=== PATIENT | female | born 1965 | race Caucasian/White ===

== ENCOUNTER 2019-03-27 09:30 | Outpatient (CLI) | payer MEDICARE, SELFPAY ==
--- NOTE | 2019-03-27 | CT_ITS ---
WS: [id number] CT LUNG CANCER SCREENING DLP: 60.16 mGy.cm DIvol: 1.51 mGy,1.28 mGy CLINICAL INFORMATION SCREENING VISIT: Baseline COMPARISON: None available. Technique: Low-dose CT scanning of the lungs have been performed from the 1 cm above the lung apices to 1 cm below the costophrenic angles. Images are viewed in 1.25 mm lung windows. MIP imaging, soft t issue and bone windows are reviewed. FINDINGS Diagnostic quality: Quality of this examination is satisfactory although limited by significant soft tissue artifact. Comments: None. Lung Nodules: No pulmonary nodules are identified. No masses. Subsegmental linear atelectasis and min imal groundglass attenuation at the RIGHT lung base. Lungs: Hyperexpanded lungs from emphysema. Subsegmental RIGHT lower lobe atelectasis. Heart: Normal size heart. Increased pericardial fat surrounding the heart. No significant calcificati on within the aorta or coronary arteries. Other findings: No mediastinal adenopathy. Extremely limited evaluation of the upper abdominal struct ures due to quality of the imaging parameters. Mild increase in thoracic kyphosis with multilevel spo ndylitic changes. No fracture or bone destruction. CT/CT lung screening [id number] IMPRESSION: LUNG-RADS: 1-Negative FOLLOW UP: 12 Month: Continue annual screening with LDCT 1. Increased pericardial fat. 2. Subsegmental atelectasis RIGHT lung base.
--- NOTE | 2019-03-27 09:45 | CT_ITS ---
WS: [id number] CT LUNG CANCER SCREENING DLP: 60.16 mGy.cm DIvol: 1.51 mGy,1.28 mGy CLINICAL INFORMATION SCREENING VISIT: Baseline COMPARISON: None available. Technique: Low-dose CT scanning of the lungs have been performed from the 1 cm above the lung apices to 1 cm below the costophrenic angles. Images are viewed in 1.25 mm lung windows. MIP imaging, soft t issue and bone windows are reviewed. FINDINGS Diagnostic quality: Quality of this examination is satisfactory although limited by significant soft tissue artifact. Comments: None. Lung Nodules: No pulmonary nodules are identified. No masses. Subsegmental linear atelectasis and min imal groundglass attenuation at the RIGHT lung base. Lungs: Hyperexpanded lungs from emphysema. Subsegmental RIGHT lower lobe atelectasis. Heart: Normal size heart. Increased pericardial fat surrounding the heart. No significant calcificati on within the aorta or coronary arteries. Other findings: No mediastinal adenopathy. Extremely limited evaluation of the upper abdominal struct ures due to quality of the imaging parameters. Mild increase in thoracic kyphosis with multilevel spo ndylitic changes. No fracture or bone destruction. LUNG-RADS: 1-Negative
== END 2019-03-27 09:31 | disposition home or self-care (01) ==
LOC: CT 09:32
PROVIDERS: Family Provider Nurse Practitioner Family; PCP Nurse Practitioner Family; Visit Provider Internal Medicine Critical Care Medicine
DX: Z12.2 Encounter for screening for malignant neoplasm of respiratory organs (principal); J98.11 Atelectasis
CPT/HCPCS: G0297

== ENCOUNTER 2019-05-02 10:00 | Outpatient (CLI) | payer MEDICARE, SELFPAY ==
--- NOTE | 2019-05-02 16:17 | PFTS_ITS ---
Date of Study:05/02/19 Date of Dictation: MECHANICS: Forced vital capacity (FVC) is reduced. Forced expiratory volume in one second (FEV1) is reduced. FEV1/FVC is normal. FLOW VOLUME LOOP: Narrow with scooping suggestive of a combined restrictive and obstructive defect. LUNG VOLUMES: Total lung capacity (TLC) is normal. Residual volume (RV) is normal. DIFFUSING CAPACITY FOR CARBON MONOXIDE: Normal. INTERPRETATION: The pulmonary function tests are consistent with mild restriction. There is no significant postbronchodilator response. The flow volume loop is consistent with small airways disease. The total lung capacity and residual volume are normal. Gas exchange (DLCO) is normal. MTDD
== END 2019-05-02 10:01 | disposition home or self-care (01) ==
LOC: RT 10:05
PROVIDERS: Family Provider Nurse Practitioner Family; PCP Nurse Practitioner Family; Visit Provider Internal Medicine Critical Care Medicine
DX: J98.4 Other disorders of lung (principal)
CPT/HCPCS: 94060; 94726; 94729; J7611

== ENCOUNTER → 2019-08-10 08:08 | Outpatient (BNVA) | payer MEDICARE, SELFPAY | PROVIDERS: Family Provider Nurse Practitioner Family; PCP Nurse Practitioner Family; Visit Provider Nurse Practitioner Family | DX: M79.641 Pain in right hand (principal); S62.656A Nondisplaced fracture of middle phalanx of right little finger, initial encounter for closed fracture; X58.XXXA Exposure to other specified factors, initial encounter | CPT/HCPCS: 73130 ==

== ENCOUNTER → 2019-11-12 07:57 | Outpatient (BNVA) | payer MEDICARE, SELFPAY | PROVIDERS: Family Provider Nurse Practitioner Family; PCP Nurse Practitioner Family; Visit Provider Nurse Practitioner Family | DX: E78.2 Mixed hyperlipidemia (principal); Z79.899 Other long term (current) drug therapy; K21.9 Gastro-esophageal reflux disease without esophagitis; R53.83 Other fatigue | CPT/HCPCS: 80053; 80061; 81003; 82306; 83036; 84443; 85025 ==

== ENCOUNTER → 2020-04-24 13:51 | Outpatient (BNVA) | payer MEDICARE, SELFPAY | PROVIDERS: Family Provider Nurse Practitioner Family; PCP Nurse Practitioner Family; Visit Provider Nurse Practitioner Family | DX: M72.2 Plantar fascial fibromatosis (principal) | CPT/HCPCS: 73630 ==

== ENCOUNTER → 2020-05-05 08:18 | Outpatient (BNVA) | payer MEDICARE, SELFPAY | PROVIDERS: Family Provider Nurse Practitioner Family; PCP Nurse Practitioner Family; Visit Provider Nurse Practitioner Family | DX: E78.2 Mixed hyperlipidemia (principal); R73.09 Other abnormal glucose; R53.83 Other fatigue; E55.9 Vitamin D deficiency, unspecified; K21.9 Gastro-esophageal reflux disease without esophagitis | CPT/HCPCS: 80053; 80061; 81003; 82306; 83036; 84443; 85025 ==

== ENCOUNTER → 2020-07-02 14:52 | Outpatient (BNVA) | payer MEDICARE, SELFPAY | PROVIDERS: Family Provider Nurse Practitioner Family; PCP Nurse Practitioner Family; Referring Provider Nurse Practitioner Family; Visit Provider Podiatrist Foot & Ankle Surgery | DX: M72.2 Plantar fascial fibromatosis (principal); M79.671 Pain in right foot; Z46.89 Encounter for fitting and adjustment of other specified devices | CPT/HCPCS: 73630; 97760; L4397 ==

== ENCOUNTER 2020-07-02 15:50 | Outpatient (CLI) | payer MEDICARE, SELFPAY | END 2020-07-02 15:51 | disposition home or self-care (01) | LOC: SPT 15:51 | PROVIDERS: Family Provider Nurse Practitioner Family; PCP Nurse Practitioner Family; Visit Provider Podiatrist Foot & Ankle Surgery | DX: Z46.89 Encounter for fitting and adjustment of other specified devices (principal); M72.2 Plantar fascial fibromatosis | CPT/HCPCS: 97760; L4397 ==

== ENCOUNTER → 2020-10-14 12:07 | Outpatient (BNVA) | payer MEDICARE, SELFPAY | PROVIDERS: Family Provider Nurse Practitioner Family; PCP Nurse Practitioner Family; Visit Provider Nurse Practitioner Family | DX: R53.83 Other fatigue (principal); R73.09 Other abnormal glucose; E55.9 Vitamin D deficiency, unspecified; E78.2 Mixed hyperlipidemia; Z00.00 Encounter for general adult medical examination without abnormal findings | CPT/HCPCS: 80053; 80061; 81003; 82306; 83036; 84443; 85025; 87077; 87086; 87184 ==

== ENCOUNTER → 2020-10-22 11:59 | Outpatient (BNVA) | payer MEDICARE, SELFPAY | PROVIDERS: Family Provider Nurse Practitioner Family; PCP Nurse Practitioner Family; Visit Provider Nurse Practitioner Family | DX: A49.9 Bacterial infection, unspecified (principal); N39.0 Urinary tract infection, site not specified; N32.81 Overactive bladder; Z12.39 Encounter for other screening for malignant neoplasm of breast | CPT/HCPCS: 81003; 87077; 87086; 87184 ==

== ENCOUNTER → 2020-11-05 10:31 | Outpatient (BNVA) | payer MEDICARE, SELFPAY | PROVIDERS: Family Provider Nurse Practitioner Family; PCP Nurse Practitioner Family; Visit Provider Nurse Practitioner Family | DX: N39.0 Urinary tract infection, site not specified (principal) | CPT/HCPCS: 81003 ==

== ENCOUNTER 2020-12-19 06:00 | Outpatient (RCR) | payer MEDICARE, SELFPAY | END 2020-12-28 06:00 | disposition home or self-care (01) | LOC: WPT 06:00 | PROVIDERS: PCP Nurse Practitioner Family; Referring Provider Physician Assistant; Visit Provider Physician Assistant | DX: M46.1 Sacroiliitis, not elsewhere classified (principal) | CPT/HCPCS: 97110; 97162 ==

== ENCOUNTER 2020-12-26 14:26 | Outpatient (CLI) | payer MEDICARE, SELFPAY ==
--- NOTE | 2020-12-26 14:31 | XR_ITS ---
WS: [id number] Exam: XR DEXA axial skeleton* [id number] Date/Time of Exam: 12/26/2020 2:31 PM Reason For Exam: ASYMPTOMATIC MENOPAUSAL STATE DEXA BONE DENSITOMETRY [employer] The left forearm bone mineral density measures 0.880 g/sq cm. This corresponds to a T score of 0.0 an d Z score of 0.7. Left femoral neck bone mineral density measures 1.102 g/cm2. This corresponds to T score of 0.7 and Z score of 0.7. Right femoral neck bone mineral density measures 1.074 g/cm2. This corresponds to a T score of 0.5 an d Z score of 0.5. Mean femoral neck bone mineral density measures 1.088 g/cm2. This corresponds to a T score of 0.6 and Z score of 0.6. XR/XR DEXA axial skeleton* [id number] IMPRESSION: Bone mineral density lies in the normal range. No osteopenia is observed at th is time. Refer to detailed summary.
== END 2020-12-26 14:27 | disposition home or self-care (01) ==
PROVIDERS: PCP Nurse Practitioner Family; Visit Provider Physician Assistant
DX: Z78.0 Asymptomatic menopausal state (principal)
CPT/HCPCS: 77080

== ENCOUNTER 2021-02-05 12:44 | Outpatient (CLI) | payer MEDICARE, SELFPAY ==
--- NOTE | 2021-02-05 13:00 | MM_ITS ---
WS: [id number] BILATERAL SCREENING DIGITAL MAMMOGRAM WITH CAD HISTORY: Z12.39 - Encounter for other screening for malignant neoplasm. COMPARISON: 09/19/2018 and 08/26/2017 Bilateral CC and MLO views submitted. Computer aided detection analyzed. Breast composition: There are scattered areas of fibroglandular density. No suspicious masses, microc alcifications or architectural distortion. Benign scattered calcifications. MM/[place] [id number] IMPRESSION: BI-RADS: 2-Benign FOLLOW UP: 1 Year Follow-up
== END 2021-02-05 12:45 | disposition home or self-care (01) ==
LOC: RADSHAW 12:46
PROVIDERS: PCP Nurse Practitioner Family; Visit Provider Nurse Practitioner Family
DX: Z12.31 Encounter for screening mammogram for malignant neoplasm of breast (principal)
CPT/HCPCS: 77067

== ENCOUNTER → 2021-07-06 10:05 | Outpatient (BNVA) | payer MEDICARE, SELFPAY | PROVIDERS: PCP Nurse Practitioner; Visit Provider Nurse Practitioner | DX: R43.9 Unspecified disturbances of smell and taste (principal) | CPT/HCPCS: 82306; 82607 ==

== ENCOUNTER → 2021-08-17 08:57 | Outpatient (BNVA) | payer MEDICARE, SELFPAY | PROVIDERS: PCP Nurse Practitioner; Visit Provider Podiatrist Foot & Ankle Surgery | DX: M72.2 Plantar fascial fibromatosis (principal); M79.671 Pain in right foot | CPT/HCPCS: 20550; J1100; J3301; J3490 ==

== ENCOUNTER → 2021-09-17 09:22 | Outpatient (BNVA) | payer MEDICARE, SELFPAY | PROVIDERS: PCP Nurse Practitioner; Visit Provider Nurse Practitioner | DX: Z20.822 Contact with and (suspected) exposure to COVID-19 (principal); B34.9 Viral infection, unspecified | CPT/HCPCS: 87635 ==

== ENCOUNTER 2021-12-10 11:13 | Outpatient (CLI) | payer MEDICARE, SELFPAY ==
--- NOTE | 2021-12-10 12:15 | MR_ITS ---
WS: [id number] MRI LUMBAR SPINE WITH CONTRAST TECHNIQUE: Sagittal T1, T2 and STIR imaging. Axial T1 and T2 imaging. Post gadolinium imaging was obt ained. CLINICAL INFORMATION: RADICULOPATHY COMPARISON: None. FINDINGS: Mild lumbar curve. No acute compression. No high-grade central canal stenosis. Pedicle screw fixation L3-L5 with interbody fusion L3-L4 and L4-L5. Decompressive laminectomy defects. Incidental Tarlov cy st in the sacrum. Tiny shallow central protrusion T11-T12. L1-L2: No significant disc bulging. Spinal canal and foramen are patent. Moderate facet arthropathy. L2-L3: No significant disc bulging. Moderate facet arthropathy. Spinal canal and foramen are patent. L3-L4: Pedicle screw fixation with interbody fusion. Spinal canal is patent. Foramen are patent. Deco mpressive laminectomies. L4-L5: Pedicle screw fixation. Interbody bony fusion. Spinal canal and foramen are patent. Decompress [place] laminectomies. L5-S1: RIGHT pericentral protrusion impinges the traversing RIGHT S1 nerve root in the subarticular r ecess. Recommend correlation for RIGHT S1 nerve root symptoms. Mild to moderate RIGHT and mild LEFT b darren foraminal narrowing. Advanced facet arthropathy with small facet effusions. Visualized pelvic bony structures: Normal. Paravertebral soft tissues: Normal. Small RIGHT renal cyst. MR/MR lumbar spine wo/w con [id number] IMPRESSION: 1. Prior postoperative changes pedicle screw fixation L3-L5 with interbody fus ion grafts. Decompressive laminectomy defects. 2. No high-grade central canal stenosis. 3. RIGHT pericentral protrusion L5-S1 impinges the traversing RIGHT S1 nerve r oot in the subarticular recess. Recommend correlation for RIGHT S1 nerve root s ymptoms. 4. Mild to moderate RIGHT L5-S1 foraminal narrowing. 5. Advanced facet arthropathy L5-S1 with small facet effusions.
[2021-12-10] MEDS: gadobenate dimeglumine 20 mL vial IV (12:38)
== END 2021-12-10 11:14 | disposition home or self-care (01) ==
PROVIDERS: PCP Nurse Practitioner; Visit Provider Physician Assistant
DX: M51.16 Intervertebral disc disorders with radiculopathy, lumbar region (principal); Z98.1 Arthrodesis status; G89.18 Other acute postprocedural pain; M51.27 Other intervertebral disc displacement, lumbosacral region; M48.07 Spinal stenosis, lumbosacral region
CPT/HCPCS: 72158

== ENCOUNTER → 2022-01-19 10:41 | Outpatient (BNVA) | payer MEDICARE, SELFPAY | PROVIDERS: PCP Nurse Practitioner; Visit Provider Nurse Practitioner | DX: A49.9 Bacterial infection, unspecified (principal); N39.0 Urinary tract infection, site not specified | CPT/HCPCS: 81000 ==

== ENCOUNTER → 2022-06-30 08:41 | Outpatient (BNVA) | payer MEDICARE, SELFPAY | PROVIDERS: PCP Nurse Practitioner; Visit Provider Nurse Practitioner | DX: Z00.00 Encounter for general adult medical examination without abnormal findings (principal); E78.2 Mixed hyperlipidemia; R73.09 Other abnormal glucose; E11.9 Type 2 diabetes mellitus without complications; R53.83 Other fatigue | CPT/HCPCS: 80053; 83036; 84443; 85025 ==

== ENCOUNTER 2022-10-05 06:00 | Outpatient (RCR) | payer MEDICARE, SELFPAY | END 2022-10-28 23:59 | disposition home or self-care (01) | LOC: WPT 06:00 | PROVIDERS: Visit Provider Clinical Nurse Specialist Adult Health | DX: M54.2 Cervicalgia (principal) | CPT/HCPCS: 97110; 97112; 97161; 97530 ==

== ENCOUNTER 2022-10-29 06:00 | Outpatient (RCR) | payer MEDICARE, SELFPAY | END 2022-11-27 23:59 | disposition home or self-care (01) | LOC: WPT 06:00 | PROVIDERS: Visit Provider Clinical Nurse Specialist Adult Health | DX: M54.2 Cervicalgia (principal) | CPT/HCPCS: 97110; 97112; 97530 ==

== ENCOUNTER 2022-11-28 06:00 | Outpatient (RCR) | payer MEDICARE, SELFPAY | END 2022-12-28 23:59 | disposition home or self-care (01) | LOC: WPT 06:00 | PROVIDERS: Visit Provider Clinical Nurse Specialist Adult Health | DX: M54.2 Cervicalgia (principal) | CPT/HCPCS: 97110; 97112 ==

== ENCOUNTER → 2023-02-01 09:17 | Outpatient (BNVA) | payer MEDICARE, SELFPAY | PROVIDERS: Visit Provider Nurse Practitioner Family | DX: E11.9 Type 2 diabetes mellitus without complications (principal); E78.2 Mixed hyperlipidemia; E55.9 Vitamin D deficiency, unspecified; R53.83 Other fatigue; R73.09 Other abnormal glucose | CPT/HCPCS: 80053; 80061; 81003; 82306; 83036; 84443; 85025; 87086; 87184 ==

== ENCOUNTER 2023-05-05 06:00 | Outpatient (RCR) | payer MEDICARE, SELFPAY | END 2023-05-29 23:59 | disposition home or self-care (01) | LOC: WPT 06:00 | PROVIDERS: PCP Nurse Practitioner Family; Visit Provider Family Medicine | DX: M17.12 Unilateral primary osteoarthritis, left knee (principal) | CPT/HCPCS: 97110; 97112; 97161; 97530 ==

== ENCOUNTER 2023-05-30 06:00 | Outpatient (RCR) | payer MEDICARE, SELFPAY | END 2023-06-28 23:59 | disposition home or self-care (01) | LOC: WPT 06:00 | PROVIDERS: PCP Nurse Practitioner Family; Visit Provider Family Medicine | DX: M17.12 Unilateral primary osteoarthritis, left knee (principal) | CPT/HCPCS: 97110; 97112; 97530 ==

== ENCOUNTER 2023-06-29 06:00 | Outpatient (RCR) | payer MEDICARE, SELFPAY | END 2023-07-29 23:59 | disposition home or self-care (01) | LOC: WPT 06:00 | PROVIDERS: PCP Nurse Practitioner Family; Visit Provider Family Medicine | DX: M17.12 Unilateral primary osteoarthritis, left knee (principal) | CPT/HCPCS: 97110; 97112; 97530 ==

== ENCOUNTER → 2023-11-28 09:54 | Outpatient (BNVA) | payer MEDICARE, SELFPAY | PROVIDERS: PCP Nurse Practitioner Family; Visit Provider Nurse Practitioner Family | DX: E11.9 Type 2 diabetes mellitus without complications (principal); R53.83 Other fatigue; E78.2 Mixed hyperlipidemia; E55.9 Vitamin D deficiency, unspecified | CPT/HCPCS: 80053; 80061; 81003; 82306; 83036; 83721; 84443; 85025; 87086 ==

== ENCOUNTER → 2023-12-01 09:00 | Outpatient (BNVA) | payer MEDICARE, SELFPAY | PROVIDERS: PCP Nurse Practitioner Family; Referring Provider Nurse Practitioner Family; Visit Provider Student in an Organized Health Care Education/Training Program | DX: Z12.11 Encounter for screening for malignant neoplasm of colon (principal) | CPT/HCPCS: 99024; 99204 ==

== ENCOUNTER → 2024-11-01 11:46 | Outpatient (BNVA) | payer MEDICARE, SELFPAY | PROVIDERS: PCP Nurse Practitioner Family; Visit Provider Nurse Practitioner Family | DX: E55.9 Vitamin D deficiency, unspecified (principal); E78.2 Mixed hyperlipidemia; E11.9 Type 2 diabetes mellitus without complications; R09.81 Nasal congestion; J02.9 Acute pharyngitis, unspecified; K21.9 Gastro-esophageal reflux disease without esophagitis | CPT/HCPCS: 80053; 80061; 81003; 82306; 83036; 84443; 85025; 87077; 87086; 87184 ==

== ENCOUNTER → 2024-11-08 11:40 | Outpatient (BNVA) | payer MEDICARE, SELFPAY | PROVIDERS: PCP Nurse Practitioner Family; Visit Provider Nurse Practitioner Family | DX: N02.9 Recurrent and persistent hematuria with unspecified morphologic changes (principal); R53.83 Other fatigue | CPT/HCPCS: 81003; 87086 ==

== ENCOUNTER → 2024-11-13 09:01 | Outpatient (BNVA) | payer MEDICARE, SELFPAY | PROVIDERS: PCP Nurse Practitioner Family; Visit Provider Nurse Practitioner Family | DX: N02.9 Recurrent and persistent hematuria with unspecified morphologic changes (principal) | CPT/HCPCS: 81003 ==

== ENCOUNTER → 2024-11-14 08:42 | Outpatient (BNVA) | payer MEDICARE, SELFPAY | PROVIDERS: PCP Nurse Practitioner Family; Visit Provider Nurse Practitioner Family | DX: N02.9 Recurrent and persistent hematuria with unspecified morphologic changes (principal) | CPT/HCPCS: 88112 ==

== ENCOUNTER → 2024-11-22 09:22 | Outpatient (BNVA) | payer MEDICARE, SELFPAY | PROVIDERS: PCP Nurse Practitioner Family; Visit Provider Student in an Organized Health Care Education/Training Program | DX: Z12.11 Encounter for screening for malignant neoplasm of colon (principal); K21.9 Gastro-esophageal reflux disease without esophagitis; R12 Heartburn | CPT/HCPCS: 99214 ==

== ENCOUNTER → 2024-12-18 09:45 | Outpatient (BNVA) | payer MEDICARE, SELFPAY | PROVIDERS: PCP Nurse Practitioner Family; Visit Provider Nurse Practitioner Family | DX: M19.011 Primary osteoarthritis, right shoulder (principal) | CPT/HCPCS: 73030 ==

== ENCOUNTER 2024-12-21 13:43 | Outpatient (CLI) | payer MEDICARE, SELFPAY ==
--- NOTE | 2024-12-21 14:00 | MM_ITS ---
WS: [id number] BILATERAL 3D TOMOSYNTHESIS DIGITAL SCREENING MAMMOGRAPHY WITH CAD CLINICAL INFORMATION: Z12.31 - Encounter for screening mammogram for malignant ... HISTORY: Screening mammogram. No current complaints. COMPARISON: 2020 TECHNIQUE: Bilateral CC and MLO views. FINDINGS: Scattered fibroglandular densities bilaterally. No suspicious focal mass, asymmetry, calcifications, or architectural distortion. No evidence of malignancy. Incidental punctate calcifications. A few clustered punctate calcifications LEFT breast MM/MM scr tomosynthesis [id number] IMPRESSION: DENSITY: There are scattered areas of fibroglandular density. BI-RADS: 2 - Benign. FOLLOW UP: 1 Year Follow-up Recommend return to annual screening mammography.
--- NOTE | 2024-12-21 14:30 | XR_ITS ---
WS: [id number] SCREENING DEXA SCAN [employer] CLINICAL INFORMATION: N95.9 - Unspecified menopausal and perimenopausal disorder COMPARISON: 2020 FINDINGS: Left femoral neck bone mineral density measures 1.091 g/cm2. This corresponds to a T score of 0.7 and Z score of 0.8. Right femoral neck bone mineral density measures 1.043 g/cm2. This corresponds to a T score 0.3of and Z score of 0.4. Mean femoral neck bone mineral density measures 1.067 g/cm2. This corresponds to a T score of 0.5 and Z score of 0.6. XR/XR DEXA axial skeleton* [id number] IMPRESSION: Normal bone mineralization femoral necks. Patient's FRAX calculated 10 year probability for major osteoporotic fracture i s 5.5% and osteoporotic hip fracture is 0.3%. Bone mineral density femoral necks decreased -1.9%
== END 2024-12-21 13:44 | disposition home or self-care (01) ==
LOC: RAD 13:46
PROVIDERS: PCP Nurse Practitioner Family; Visit Provider Nurse Practitioner Family
DX: Z12.31 Encounter for screening mammogram for malignant neoplasm of breast (principal); Z13.820 Encounter for screening for osteoporosis; N95.9 Unspecified menopausal and perimenopausal disorder; M85.80 Other specified disorders of bone density and structure, unspecified site; R92.323 Mammographic fibroglandular density, bilateral breasts; R92.1 Mammographic calcification found on diagnostic imaging of breast
CPT/HCPCS: 77063; 77067; 77080

== ENCOUNTER → 2024-12-26 13:33 | Outpatient (BNVA) | payer MEDICARE, SELFPAY | PROVIDERS: PCP Nurse Practitioner Family; Visit Provider Nurse Practitioner Family | DX: R69 Illness, unspecified (principal) | CPT/HCPCS: 87426 ==

== ENCOUNTER 2025-01-01 07:15 | Day surgery (SDC) | payer MEDICARE, SELFPAY ==
[2025-01-01 08:12] VITALS: BP 132/87; PULSE 98; RESP 18; TEMP 36.3; O2SAT 98
--- NOTE | 2025-01-01 08:21 | ANES.PREANE2 ---
Pre-Anesthetic Assessment Height/Weight: Height 1.63 m Weight 114.305 kg Temp Pulse Resp BP Pulse Ox O2 Del Method 97.4 F L 98 18 132/87 98 Room Air 01/01/25 08:12 01/01/25 08:12 01/01/25 08:12 01/01/25 08:12 01/01/25 08:12 01/01/25 08:12 Preop Diagnosis: diffuculty swallowing Operation Date: 01/01/25 09:00 Proposed Procedures p EGD EGD with Biopsy [id number] G0121 K21.9 Z12.11(Not Applicable) - Sam Cruz MD s Colonoscopy(Not Applicable) - Sam Cruz MD Was Beta Teresa taken within 24 hours: N/A Was Clonidine taken within 24 hours: N/A Last intake: Intake Last Liquid Date 12/31/24 Last Liquid Time 23:30 Last Solid Date 12/30/24 Last Solid Time 18:00 Last Intake: 08:23 Social No alcohol and No tobacco Exam alert and oriented x 3 Airway Submandibular: within normal limits Cervical ROM: within normal limits Mallampati: Class II Dentition: false History/ROS No significant history except as noted Pulmonary None reported CV/HEM None reported None reported Hepatic None reported GI None reported Metabolic Morbid [place] [facility] [place] None reported Neuropsych None reported Anesthetic Plan ASA status: 3 Anesthesia: Anesthesia Evaluation Risk of > 500 ml blood loss (7ml/kg in children): No Medications/Allergies Home Medications ?Medication ?Instructions ?Recorded ?Confirmed ?Last Taken ?Type nortriptyline 75 mg capsule 75 mg PO DAILY 03/20/19 12/26/24 12/31/24 History multivitamin (Daily Multi-Vitamin 1 tab PO DAILY 04/24/20 12/26/24 12/31/24 History tablet) hydromorphone (PF) 1 mg/mL 1 mg SUBCUT .hourly PRN Pain 07/03/21 12/26/24 12/31/24 History injection syringe (Dilaudid (PF)) ezetimibe 10 mg tablet (Zetia) 10 mg PO DAILY 11/01/24 12/26/24 12/31/24 History gabapentin 400 mg capsule 800 mg PO TID 11/01/24 12/26/24 12/31/24 History aripiprazole 2 mg tablet 2 mg PO DAILY 12/26/24 12/26/24 12/31/24 History cholecalciferol (vitamin D3) 1,250 2,000 unit PO DAILY 12/26/24 12/26/24 12/31/24 History mcg (50,000 unit) capsule citalopram 20 mg tablet 20 mg PO DAILY 12/26/24 12/26/24 12/31/24 History cyclobenzaprine 10 mg tablet 10 mg PO TID PRN Muscle Spasm 12/26/24 12/26/24 12/31/24 History diphenoxylate-atropine 2.5 1 tab PO BID PRN diarrhea #10 tabs 12/26/24 01/01/25 Unknown Rx mg-0.025 mg tablet (Lomotil) hydrochlorothiazide 12.5 mg tablet 12.5 mg PO DAILY 12/26/24 12/26/24 12/31/24 History omeprazole 20 mg capsule,delayed 20 mg PO DAILY 12/26/24 12/26/24 12/31/24 History release oxybutynin chloride 5 mg 5 mg PO DAILY 12/26/24 12/26/24 12/31/24 History tablet,extended release 24 hr rosuvastatin 10 mg tablet 10 mg PO DAILY 12/26/24 12/26/24 12/31/24 History tirzepatide 7.5 mg/0.5 mL 7.5 mg (0.5 mL) SUBCUT .WEEKLY #2 12/26/24 01/01/25 12/25/24 Rx subcutaneous pen injector mL (Mounjaro) Allergies Allergy/AdvReac Type Severity Reaction Status Date / Time Opioids - Morphine Analogues Allergy ADR-Itching Verified 12/26/24 12:52 Current Medications Generic Name Dose Route Start Last Admin Trade Name Freq PRN Reason Stop Dose Admin Sodium Chloride 1,000 mls @ 15 mls/hr 01/01/25 07:32 01/01/25 08:18 Sodium Chloride 0.9% IV 01/02/25 07:31 15 mls/hr .Q24H PRN Administration COLONOSCOPY FLUIDS PFSH Anesthesia Medical History (Updated 12/26/24 @ 13:26 by MARJORIE Negron) Osteopenia Carpal tunnel syndrome of left wrist Acute bacterial sinusitis Upper respiratory infection Arthritis of right shoulder Presence of implanted infusion pump Recurrent hematuria E. coli UTI Dysphagia, unspecified type Medicare annual wellness visit, subsequent Colon cancer screening Degenerative joint disease of knee, left Breast cancer screening by mammogram Type 2 diabetes mellitus without complication, without long-term current use of insulin Breast cancer screening UTI (urinary tract infection), bacterial Overactive bladder Acute lower respiratory infection Fatigue Elevated hemoglobin A1c Pharyngitis Mixed hyperlipidemia GERD (gastroesophageal reflux disease) Bronchitis Patient is a smoker Depression Insomnia Esophagitis with gastritis Adenomatous colon polyp Polyp of colon, unspecified part of colon, unspecified type Seborrheic keratoses Restrictive lung disease Surgical History (Updated 12/26/24 @ 13:26 by MARJORIE Negron) History of implanted electronic device bladder History of arthroscopy of both knees S/P spinal fusion Status post right knee replacement S/P cholecystectomy S/P abdominal hysterectomy H/O colonoscopy with polypectomy 09/15 patient had colonoscopy per Dr. Burrell with removal of adenomatous polyp. Patient to return for repeat colonoscopy in 5 years (August 2023) History of incisional hernia repair December [address] Burrell History of esophagogastroduodenoscopy (EGD) August 2018 - per Dr. Burrell Family History Brother Cancer, Onset Age: 60 Lung cancer Social History Smoking and tobacco/nicotine status: current every day tobacco/nicotine user cigarettes Packs smoked per day: 1 Years cigarettes smoked: 30 Quit status (tobacco/nicotine): considering quitting Second hand smoke exposure: Yes Alcohol intake: never Substance/Drug Use: never Lives independently: Yes Household members: spouse Current occupational status: disabled Do you think of yourself as: Straight/Heterosexual Current gender identity: Female
--- NOTE | 2025-01-01 08:46 | W.PM.OPSFHP ---
Same Day Surgery H&P Indication for Procedure/HPI DATE OF PROCEDURE: January 01, 2025 CHIEF COMPLAINT/INDICATIONFOR SURGICAL PROCEDURE: Dysphagia, screening colonoscopy PREOP DIAGNOSIS: Dysphagia, screening colonoscopy PLANNED PROCEDURE: Operation Date: 01/01/25 09:00 Proposed Procedures p EGD EGD with Biopsy [id number] G0121 K21.9 Z12.11(Not Applicable) - Sam Cruz MD s Colonoscopy(Not Applicable) - Sam Cruz MD Medications/Allergies* Home Medications ?Medication ?Instructions ?Recorded ?Confirmed ?Type nortriptyline 75 mg capsule 75 mg PO DAILY 03/20/19 12/26/24 History multivitamin (Daily Multi-Vitamin 1 tab PO DAILY 04/24/20 12/26/24 History tablet) hydromorphone (PF) 1 mg/mL 1 mg SUBCUT .hourly PRN Pain 07/03/21 12/26/24 History injection syringe (Dilaudid (PF)) ezetimibe 10 mg tablet (Zetia) 10 mg PO DAILY 11/01/24 12/26/24 History gabapentin 400 mg capsule 800 mg PO TID 11/01/24 12/26/24 History aripiprazole 2 mg tablet 2 mg PO DAILY 12/26/24 12/26/24 History cholecalciferol (vitamin D3) 1,250 2,000 unit PO DAILY 12/26/24 12/26/24 History mcg (50,000 unit) capsule citalopram 20 mg tablet 20 mg PO DAILY 12/26/24 12/26/24 History cyclobenzaprine 10 mg tablet 10 mg PO TID PRN Muscle Spasm 12/26/24 12/26/24 History hydrochlorothiazide 12.5 mg tablet 12.5 mg PO DAILY 12/26/24 12/26/24 History omeprazole 20 mg capsule,delayed 20 mg PO DAILY 12/26/24 12/26/24 History release oxybutynin chloride 5 mg 5 mg PO DAILY 12/26/24 12/26/24 History tablet,extended release 24 hr rosuvastatin 10 mg tablet 10 mg PO DAILY 12/26/24 12/26/24 History Allergies/Adverse Reactions Allergy/AdvReac Type Severity Reaction Status Date / Time Opioids - Morphine Analogues Allergy ADR-Itching Verified 12/26/24 12:52 Current Medications: Generic Name Dose Route Start Last Admin Trade Name Freq PRN Reason Stop Dose Admin Sodium Chloride 1,000 mls @ 15 mls/hr 01/01/25 07:32 01/01/25 08:18 Sodium Chloride 0.9% IV 01/02/25 07:31 15 mls/hr .Q24H PRN Administration COLONOSCOPY FLUIDS Pertinent History/Comorbid Conditions* Medical History (Updated 12/26/24 @ 13:26 by MARJORIE Negron) Osteopenia Carpal tunnel syndrome of left wrist Acute bacterial sinusitis Upper respiratory infection Arthritis of right shoulder Presence of implanted infusion pump Recurrent hematuria E. coli UTI Dysphagia, unspecified type Medicare annual wellness visit, subsequent Colon cancer screening Degenerative joint disease of knee, left Breast cancer screening by mammogram Type 2 diabetes mellitus without complication, without long-term current use of insulin Breast cancer screening UTI (urinary tract infection), bacterial Overactive bladder Acute lower respiratory infection Fatigue Elevated hemoglobin A1c Pharyngitis Mixed hyperlipidemia GERD (gastroesophageal reflux disease) Bronchitis Patient is a smoker Depression Insomnia Esophagitis with gastritis Adenomatous colon polyp Polyp of colon, unspecified part of colon, unspecified type Seborrheic keratoses Restrictive lung disease Surgical History (Updated 12/26/24 @ 13:26 by MARJORIE Negron) History of implanted electronic device bladder History of arthroscopy of both knees S/P spinal fusion Status post right knee replacement S/P cholecystectomy S/P abdominal hysterectomy H/O colonoscopy with polypectomy 09/15 patient had colonoscopy per Dr. Burrell with removal of adenomatous polyp. Patient to return for repeat colonoscopy in 5 years (August 2023) History of incisional hernia repair December [address] Burrell History of esophagogastroduodenoscopy (EGD) August 2018 - per Dr. Burrell Family History (Updated 03/13/20 @ 08:55 by MARJORIE Molina) Cancer Brother, Onset Age: 60 Lung cancer Social History Smoking and tobacco/nicotine status: current every day tobacco/nicotine user cigarettes Packs smoked per day: 1 Years cigarettes smoked: 30 Quit status (tobacco/nicotine): considering quitting Second hand smoke exposure: Yes Alcohol intake: never Substance/Drug Use: never Lives independently: Yes Household members: spouse Current occupational status: disabled Do you think of yourself as: Straight/Heterosexual Current gender identity: Female Pertinent Exam Findings alert, oriented x 3, clear to auscultation bilaterally, regular rate & rhythm and procedure specific exam findings Abdomen soft nontender nondistended Recommendations Risks and benefits of procedure reviewed and Patient/family agree to proceed Surgery/Procedure today Other Plans: I have explained the risks and benefits of a diagnostic EGD with biopsy and the patient agrees to proceed. I have explained the risks and benefits of a screening colonoscopy and the patient agrees to proceed. Patient is average for colon cancer. Patient understands that hemoccult is an alternative and still decides to proceed with colonoscopy. Had an extensive discussion with the patient. Answered all questions. Patient understands that the risks include a 1% risk of iatrogenic perforation and risk of aspiration. Coding Level of Care Code Acute Code for Chg Fwd
[2025-01-01 09:14] VITALS: BP 136/85; PULSE 92; RESP 18; TEMP 36.4; O2SAT 95
[2025-01-01 09:45] VITALS: BP 150/93; PULSE 101; RESP 18; O2SAT 97
--- NOTE | 2025-01-01 09:45 | ANE.PACU2 ---
Inpatient post-anesthesia follow up: Airway intact: Yes Vital signs: Temperature 97.6 F Pulse Rate 101 Respiratory Rate 18 Blood Pressure 150/93 Pulse Oximetry 97 Oxygen Delivery Me thod Room Air Oxygen Flow Rate Fraction of Inspir ed Oxygen Hydration adequate: Yes Nausea and vomiting: No Pain level: 1 Mental status: Baseline
== END 2025-01-01 09:45 | disposition home or self-care (01) ==
PROVIDERS: PCP Nurse Practitioner Family; Visit Provider Student in an Organized Health Care Education/Training Program
PROC: 0DJ08ZZ Inspection of Upper Intestinal Tract, Via Natural or Artificial Opening Endoscopic (ICD-10-PCS; principal; 2025-01-01 09:00)
PROC: 0DJD8ZZ Inspection of Lower Intestinal Tract, Via Natural or Artificial Opening Endoscopic (ICD-10-PCS; CPT 45378; 2025-01-01 09:00)
DX: Z12.11 Encounter for screening for malignant neoplasm of colon (principal); R13.10 Dysphagia, unspecified; K29.70 Gastritis, unspecified, without bleeding; K21.9 Gastro-esophageal reflux disease without esophagitis; E11.9 Type 2 diabetes mellitus without complications; E78.2 Mixed hyperlipidemia; Z86.0101 Personal history of adenomatous and serrated colon polyps; F17.210 Nicotine dependence, cigarettes, uncomplicated; E66.01 Morbid (severe) obesity due to excess calories; Z68.41 Body mass index [BMI] 40.0-44.9, adult
CPT/HCPCS: 36416; 43239; 82962; 88305; G0121; J2704; J7030

== ENCOUNTER → 2025-01-15 09:49 | Outpatient (BNVA) | payer MEDICARE, SELFPAY | PROVIDERS: PCP Nurse Practitioner Family; Visit Provider Student in an Organized Health Care Education/Training Program | DX: G56.02 Carpal tunnel syndrome, left upper limb (principal) | CPT/HCPCS: 73110; 99204 ==

== ENCOUNTER → 2025-01-17 10:50 | Outpatient (BNVA) | payer MEDICARE, SELFPAY | PROVIDERS: PCP Nurse Practitioner Family; Visit Provider Student in an Organized Health Care Education/Training Program | DX: Z09 Encounter for follow-up examination after completed treatment for conditions other than malignant neoplasm (principal); R03.0 Elevated blood-pressure reading, without diagnosis of hypertension | CPT/HCPCS: 99213 ==

== ENCOUNTER → 2025-01-23 09:01 | Outpatient (BNVA) | payer MEDICARE, SELFPAY | PROVIDERS: PCP Nurse Practitioner Family; Visit Provider Student in an Organized Health Care Education/Training Program | DX: M75.41 Impingement syndrome of right shoulder (principal) | CPT/HCPCS: 20610; 73030; 99214; J3301; J9999 ==